=== PATIENT | female | born 1960 | race Caucasian/White ===

== ENCOUNTER → 2016-07-18 | Outpatient (CLI) | payer BC, OTHER ==
[~2016-07-18] MED LIST: ACETAMINOPHEN650 M1 PO; ACIDOPHILUS LAC1 CAP PO; ALPRAZOLAM PO; AMBIEN10 MG PO; ASPIRIN PO; ASPIRIN81 MG PO; BIOTIN 800 MCG1 EACH PO; BYSTOLIC5 MG PO; EFFEXOR PO; EFFEXOR XR150 MG PO; FLEXERIL PO; LEVOTHROID88 MCG PO; LORTAB 5/500 TA1 TA1; LORTAB 7.51 TAB 7.5/ DOB; MELATONIN3 MG PO; MIRALAX17 GM DOB; NEXIUM PO; NITROGYLCERIN SUBLINGUAL; OXAPROZIN600 MG PO; PHENERGAN PO; REGLAN10 MG PO; SYNTHROID88 MCG PO; VICODIN 5/500 T1 TAB PO; VIIBRYD40 MG PO; VITAMIN B12-FO1 EACH PO; VITAMIN C500 M1 PO; VITAMIN D50000 UNIT PO; VIVELLE-DO.0375 MG/2 TOP; VOLTAREN75 MG PO; ZANTAC PO; ZOCOR PO
--- NOTE | ~2016-07-18 | CT3 ---
[facility] A Service of [facility] RADIOLOGY TEXT RESULTS PATIENT: NAEEM LUKE [facility] : 64 UNIT #: [id number] AGE: [address]: Betina Waterman MD SEX: F ORDER DR: [id number] [facility] [address] [place], [place] [address] [id number] O MR#: [id number] Acc #: [id number] NAME: NAEEM LUKE : 1960 SEX: F STUDY DATE/TIME: 07/18/2016 16:58 UNIT: [facility] ROOM: STUDY DESCRIPTION: CT Abd and Pelv WWo Cont Attending Physician: Betina Waterman M.D. Referring Physician: Betina Waterman M.D. Ordering Physician: Betina Waterman M.D. Primary Care Physician: Betina Waterman M.D. MEDICAL IMAGING REPORT This report is preliminary unless electronic signature is present EXAM CT abdomen and pelvis HISTORY Right flank pain, right lower quadrant pain for one week, worse last 2 days. Nausea. Loose stool. Prior hysterectomy, gallbladder surgery, breast lumpectomy, evaluate for kidneys stones, diverticulitis, right flank and right lower quadrant pain. TECHNIQUE This CT exam was performed with one or more of the following radiation dose reduction techniques: automatic exposure control, adjustment of mA and/or kV according to patient size, and iterative reconstruction. FINDINGS CT abdomen and pelvis performed before and after administration of 100 mL Isovue-370. Enteric contrast also administered. Post contrast images obtained during arterial venous and delayed phases of contrast enhancement. COMPARISON STUDIES 09/18/2015. FINDINGS Lung bases clear. Inferior heart and pericardium unremarkable. Liver unremarkable. Status post cholecystectomy. No biliary ductal dilatation. Spleen, pancreas, adrenal glands unremarkable. Noncontrast enhanced imaging through kidneys shows no hydronephrosis or nephrolithiasis. No ureteral dilatation or ureteral calculi. No perinephric inflammatory change or secondary sign of recent stone passage. Delayed-phase imaging through the kidneys shows no indication of cystic or solid mass lesion. CT Pelvis: No inguinal adenopathy. No acute appearing urinary bladder STS. [facility] A Service of [facility] RADIOLOGY TEXT RESULTS PATIENT: NAE[facility] LUKE [id number] 64 UNIT #: [id number] AGE: [address]: Betina Waterman MD SEX: F ORDER DR: abnormality. There is pelvic floor laxity. The inferior bladder and anorectal region extends approximately 3.5 cm below the pubococcygeal line on the sagittal reconstructed images. Similar appearance on prior examination. Status post hysterectomy. No suspicious adnexal structures. No pelvic or retroperitoneal adenopathy. Distal esophagus unremarkable. Moderate volume of food debris in otherwise unremarkable stomach. Correlate with ingestion history. Small bowel normal. Appendix normal. Colon shows evidence of right and left colon uncomplicated diverticulosis. No morphologic findings of diverticulitis. There are atherosclerotic arterial calcifications. No aneurysm or dissection. Visualized aortic branch vessels are patent. The bony structures show moderate to marked scoliosis convex to the left at the thoracolumbar junction, and to the right in the lower lumbar spine. Multilevel degenerative change. No acute-appearing bony abnormality. IMPRESSION 1. No renal calculi or obstruction. No findings of recent stone passage. No renal inflammatory change. No renal mass lesion. 2. There is a right and left colon uncomplicated diverticulosis. No morphologic findings of diverticulitis. 3. Appendix normal. 4. Moderate volume of food debris in stomach. Please correlate with ingestion history. Stomach otherwise unremarkable. Remainder of alimentary canal unremarkable. 5. Status post cholecystectomy and hysterectomy. No biliary ductal dilatation. No suspicious adnexal findings. 6. Pelvic floor laxity. The inferior urinary bladder and the anorectal region extends approximately 3.5 cm below the pubococcygeal line. No change from February 2015. 7. Atherosclerotic arterial calcifications. No aneurysm. The visualized aortic branch vessels appear patent. 8. Scoliosis. Degenerative changes in the spine. No acute-appearing bony abnormality. Dictated by... Manuel Navarro M.D. THIS IS AN ELECTRONICALLY VERIFIED REPORT Manuel Navarro M.D. at 07/19/2016 5:58 PM SALENA/alexandria TD: 07/18/2016 21:01 JOB #: [id number] MEDICAL IMAGING REPORT Page 1 of 1 COPY
[2016-07-18 16:11] LABS: POC - CREATININE 0.73 mg/dL (0.44-1.03); POC - GFR >60.0 mL/min (>60)
== END | disposition home or self-care (01) ==
LOC: CCAT 15:12
PROVIDERS: Internal Medicine
DX: R10.9 Unspecified abdominal pain (principal); K57.30 Diverticulosis of large intestine without perforation or abscess without bleeding; M47.896 Other spondylosis, lumbar region; M41.9 Scoliosis, unspecified; Z90.49 Acquired absence of other specified parts of digestive tract; Z90.710 Acquired absence of both cervix and uterus
CPT/HCPCS: 74178; 82565; Q9967